=== PATIENT | male | born 1955 | race Caucasian/White ===

== ENCOUNTER 2024-10-14 06:07 | Day surgery (SDC) | payer MEDICARE, SELFPAY ==
[2024-10-14] MEDS: SODIUM CHLORIDE 0.9 % (FLUSH) 10 ML SYRINGE IVF (06:26)
[2024-10-14 06:27] VITALS: BP 143/84; PULSE 54; RESP 16; TEMP 36.7; O2SAT 97; BMI 26.9
[2024-10-14] MEDS: BUPIVACAINE 0.25% 30 ML INJECTION (07:15)
[2024-10-14] MEDS: CEFAZOLIN 2 GM INJ IVP (07:18)
--- NOTE | 2024-10-14 07:27 | CRLHL7_ITS ---
For Patients: As a result of the Cures Act, medical imaging exams and procedure reports are released immediately into your electronic medical record. You may view this report before your referring provider. If you have questions, please contact your health care provider. INDICATION: Hammertoe correction of the left 2nd, 3rd, and 4th toes. TECHNIQUE : Fluoroscopically guided intraoperative evaluation of the left foot. FINDINGS: A single spot image demonstrates hammertoe correction of the 2nd, 3rd, and 4th toes of the left foot. There are pin fixations traversing these toes. The 3rd toe pin fixation tip appears to be extraosseous. 13.5 fluoroscopy time utilized. IMPRESSION: 13.5 seconds fluoroscopy time utilized intraoperatively. Dictated by Poncho Sethi MD @ 10/14/2024 2:45:35 PM (Electronically Signed)
--- NOTE | 2024-10-14 07:37 | SUR.OPER ---
PATIENT QUESTIONS ANSWERED SATISFACTORILY PREOPERATIVELY.? PATIENT BROUGHT TO OR #1 PER CART.? Patient positioned supine on OR #1 bed.? The perioperative?team supported arms bilaterally on arm boards.? Final approval of positioning by surgeon.
[2024-10-14 08:47] VITALS: BP 106/71; PULSE 57; RESP 16; TEMP 36.2; O2SAT 95
--- NOTE | 2024-10-14 08:53 | W.PODPROC_ITS ---
Date of Procedure: 10/14/24 Surgeon: Taz Johnson DPM Pre-op Diagnosis: 1. Hammertoe deformity 2nd digit left 2. Hammertoe deformity 3rd digit left 3. Hammertoe deformity 4th digit left Post-op Diagnosis: 1. Hammertoe deformity 2nd digit left 2. Hammertoe deformity 3rd digit left 3. Hammertoe deformity 4th digit left Type of Procedure: 1. Hammertoe repair 2nd digit left 2. Hammertoe repair 3rd digit left 3. Hammertoe repair 4th digit left Indications: Patient seen in clinic for ongoing painful toes. He has elected surgical care. I reviewed the procedure, recovery, expectation potential complications. These include but not limited to: Poor wound healing, infection, under correction, over correction, potentially future surgery, continued pain, deep venous thrombosis, pulmonary embolism possible . He understands risks written consent was obtained. Site marked. Procedure Description: Patient brought the operating room placed supine position on operating table at that time IV sedation was initiated. Local anesthetic injected into the left foot. He was then prepped and draped in sterile fashion. Standard time-out protocol followed. Left foot was exsanguinated the tourniquet inflated. Transverse incision made over the DIPJ 2nd toe left foot. Incision was carried down through skin subcutaneous tissues. Transverse incision was made through the extensor tendon and joint capsule. Oscillating saw was used to resect the head of the middle phalanx. The long flexor tendon was released. Wound was irrigated normal sterile saline. 0.045 smooth K-wire was introduced base of the distal phalanx driven out the tip of the toe. Toe was held in a rectus position and the K-wire driven retrogradely into the middle and proximal phalanx. C-arm confirmed excellent position. Extensor tendon was repaired with 4-0 Vicryl. Skin was closed with 4-0 Prolene. Transverse incision made over the DIPJ 3rd toe left foot. Incision was carried down through skin subcutaneous tissues. Transverse incision was made through the extensor tendon and joint capsule. Oscillating saw was used to resect the head of the middle phalanx and the base of the distal phalanx. The long flexor tendon was released. Wound was irrigated normal sterile saline. 0.045 smooth K-wire was introduced base of the distal phalanx driven out the tip of the toe. Toe was held in a rectus position and the K-wire driven retrogradely into the middle and proximal phalanx. C-arm confirmed excellent position. Extensor tendon was repaired with 4-0 Vicryl. Skin was closed with 4-0 Prolene. Transverse incision made over the DIPJ 4th toe left foot. Incision was carried down through skin subcutaneous tissues. Transverse incision was made through the extensor tendon and joint capsule. Oscillating saw was used to resect the head of the middle phalanx and the base of the distal phalanx. The long flexor tendon was released. Wound was irrigated normal sterile saline. 0.045 smooth K-wire was introduced base of the distal phalanx driven out the tip of the toe. Toe was held in a rectus position and the K-wire driven retrogradely into the middle and proximal phalanx. C-arm confirmed excellent position. Extensor tendon was repaired with 4-0 Vicryl. Skin was closed with 4-0 Prolene. Sterile dressing was applied. The tourniquet was released and normal capillary fill time returned all digits. He is placed in a surgical shoe. He was transferred from OR to PACU vital signs stable and vascular status intact to the left foot. He will be discharged per same-day surgery protocol. He is given both written and verbal postop instructions. He is given oxycodone for pain. He is weight- bearing as tolerated. Anesthesia: MAC and local Hemostasis: ankle (250mmHg) Estimated blood loss (mL): 1 Implants: 0.045 smooth K-wire x3 Specimens: none sent Disposition: same day
--- NOTE | 2024-10-14 08:53 | W.ANESCHARGE ---
Anesthesia Charges Start Date/Time Anesthesia Start Date: 10/14/24 Anesthesia Start Time: 07:41 Stop Date/Time Anesthesia Stop Date: 10/14/24 Anesthesia Stop Time: 08:49
[2024-10-14 09:00] VITALS: BP 110/75; PULSE 52; RESP 16; O2SAT 95
[2024-10-14 09:15] VITALS: BP 124/75; PULSE 52; RESP 16; O2SAT 96
[2024-10-14 09:30] VITALS: BP 125/74; PULSE 55; RESP 16; O2SAT 96
== END 2024-10-14 09:54 | disposition home or self-care (01) ==
PROVIDERS: PCP Surgery; Visit Provider Podiatrist
PROC: (CPT 28285; principal; 2024-10-14 07:15)
DX: M20.42 Other hammer toe(s) (acquired), left foot (principal)
CPT/HCPCS: 28285 ×3; 01480; 73620; 76000; J0665; J0690; J2250; J2704; J3010